=== PATIENT | male | born 1990 | race African-American/Black ===

== ENCOUNTER 2020-09-30 23:43 | Emergency (ER) | payer OTHER ==
[~2020-09-30] VITALS: Ht 177.8 cm; Wt 117.9 kg
[2020-09-30 23:52] VITALS: BP_SYST 148
[2020-10-01 01:00] VITALS: BP_SYST 148
[2020-10-01] MEDS ORDERED: NITROGLYCERIN 0.4 MG TAB.SUBL SL ONE (03:41)
== END 2020-10-01 01:00 | disposition home or self-care (01) ==
LOC: SED 23:43
DX: T15.01XA Foreign body in cornea, right eye, initial encounter (principal); I10 Essential (primary) hypertension; X58.XXXA Exposure to other specified factors, initial encounter; Y93.89 Activity, other specified; Y92.89 Other specified places as the place of occurrence of the external cause; Y99.8 Other external cause status
CPT/HCPCS: 99284